=== PATIENT | female | born 1985 | race Caucasian/White ===

== ENCOUNTER 2017-01-12 11:13 | Emergency (ER) | payer OTHER ==
[~2017-01-12 11:13] MED LIST: KEFLEX750 MG PO; NORCO1 TA1 PO; VISTARIL25 MG PO
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
--- NOTE | 2017-01-12 15:01 | ED CLINICAL REPORT ---
Clinical Report - Physicians/Mid Levels [facility] [address] [place] [address] 01/12/2017 11:15 Patient: CHIQUI LOVE Time Seen: 11:36. Arrived- By private vehicle. Historian- patient. HISTORY OF PRESENT ILLNESS Chief Complaint: ALLERGIC REACTION. The patient has had a severe, itchy skin rash consisting of "hives" with generalized distribution. She has had itching and swelling but not had trouble swallowing. No difficulty breathing. This started several days ago and is still present. It was abrupt in onset and has been constant. A possible cause has been identified (she is concerned that it is due to copper from her recently placed Paragard IUD.). (She has noticed a rash on her neck and on her wrist where she has worn jewelry recently). REVIEW OF SYSTEMS No chills, fever, sweats, calf pain or chest pain. No cough, difficulty breathing, pedal edema, palpitations or abdominal pain. No constipation, diarrhea, nausea, vomiting or urinary problems. All systems otherwise negative, except as recorded above. PAST HISTORY PCP - Ploudre. SOCIAL HISTORY Never smoker. Occasional alcohol use. History of occasional drug use: marijuana. FAMILY HISTORY she reports that her identical twin sister has had allergic reactions to copper jewelry. ADDITIONAL NOTES The nursing notes have been reviewed. PHYSICAL EXAM Vital Signs: 01/12/2017 11:19 BP: 125/64. HR: 92. RR: 16. O2 saturation: 100%. Temp: 98 F. Pain level now: 8/10. Have been reviewed. Appearance: Alert. Head: No facial angioedema. ENT: Pharynx normal. No pharyngeal erythema. Neck: Neck supple. No lymphadenopathy. CVS: Normal heart rate and rhythm. Heart sounds normal. Respiratory: No respiratory distress. Breath sounds normal. Abdomen: Nontender. No organomegaly. : Normal external exam. Speculum exam normal. IUD string visible. No cervical lesions. Cervical os closed. (no bimanual exam was performed a female lining repairer was present). Skin: Skin warm and dry. Extremities: No calf tenderness. No edema of extremities. Skin: Severe generalized urticaria. LABS, X-RAYS, AND EKG Laboratory Tests: UA-Culture if indicated: (SENAIT: 01/12/2017 11:30) ( [facility] 01/12/2017 11:54) Final results Test Result Flag Units (Reference) URINE COLOR YELLOW URINE APPEARANCE CLEAR URINE GLUCOSE NEGATIVE (NEGATIVE) URINE BILIRUBIN NEGATIVE (NEGATIVE) URINE KETONE NEGATIVE (NEGATIVE) URINE SPECIFIC GRAVITY <= 1.005 L (1.010-1.030) URINE PH 5.5 (5.0-8.0) URINE PROTEIN NEGATIVE (NEGATIVE) URINE UROBILINOGEN 0.2 EU/dL (0.2-1.0) URINE NITRITE NEGATIVE (NEGATIVE) URINE BLOOD NEGATIVE (NEGATIVE) URINE LEUK ESTERASE NEGATIVE (NEGATIVE) URINE RBC NONE SEEN rbc/hpf (0-1) URINE WBC 0-1 wbc/hpf (0-1) URINE EPITHELIAL CELLS 0-1 EPI/hpf (0-5) URINE BACTERIA NONE SEEN (NONE SEEN) URINE COMMENT CULT NOT INDICATED URINE CULTURES ARE SET-UP BASED ON THE FOLLOWING CRITERIA:POSITIVE NITRITEPOSITIVE LEUKOCYTE ESTERASEGREATER THAN 10 WHITE BLOOD CELLSMODERATE (2+) OR GREATER BACTERIA Urine: (SENAIT: 01/12/2017 11:30) ( [facility] [place] 01/12/[place] 11:44) Final results Test Result Flag Units (Reference) URINE NEGATIVE CBC w Diff: (SENAIT: 01/12/2017 11:30) ( [facility] [place] 01/12/2017 11:42) Final results Test Result Flag Units (Reference) WHITE BLOOD COUNT 8.6 K/uL (4.5-11.5) RED BLOOD COUNT 4.74 M/uL (4.00-5.20) HEMOGLOBIN 14.1 gm/dL (12.0-16.0) HEMATOCRIT 42.2 % (36.0-46.0) MEAN CELL VOLUME 89 fL (80-100) MEAN CORPUSCULAR HGB 30 pg (26-34) MEAN CORPUSCULAR HGB CONC 33 g/dL (31-37) RED CELL DISTRIBUTION WIDTH 12.6 % (11.6-14.8) PLATELET COUNT 186 K/uL (150-400) NEUTROPHIL % 83.7 H % (50-75) LYMPH % 9.9 L % (25-40) MONO % 4.5 % (3-14) EOSINOPHIL % 1.6 % (0-4) BASOPHIL % 0.3 % (0-2) CMP: (SENAIT: 01/12/2017 11:30) ( [facility] 01/12/2017 12:01) Final results Test Result Flag Units (Reference) GLUCOSE 104 mg/dL (70-110) BUN 9 mg/dL (7-18) CREATININE 0.8 mg/dL (0.6-1.3) Estimated GFR >60 mL/min Estimated GFR- >60 mL/min Note: Persistent reduction over 3 months in eGFR<60 mL/min/1.73 m2 defines CKD. Patients with eGFR values>=60 mL/min/1.73 m2 may also have CKD if evidence ofpersistent proteinuria. Additional information may be foundat www.kidney.org. SODIUM 138 mmol/L (136-145) POTASSIUM 3.9 mmol/L (3.5-5.1) CHLORIDE 100 mmol/L (98-107) CARBON DIOXIDE 26 mmol/L (21-32) CALCIUM 9.2 mg/dL (8.5-10.1) TOTAL PROTEIN 7.8 g/dL (6.4-8.2) ALBUMIN 4.0 g/dL (3.3-5.0) BILIRUBIN, TOTAL 1.2 H mg/dL (0.0-1.0) ALKALINE PHOSPHATASE 100 U/L (46-116) AST (SGOT) 49 H U/L (15-37) ALT (SGPT) 70 U/L (12-78) . PROGRESS AND PROCEDURES Course of Care: the patient continues to express concern that her allergic reaction may be due to her recent placement of a ParaGard copper IUD. I explained to her at length that there is little evidence of this phenomenon but that copper could not be absolutely excluded as an allergen source. She insists that she would like her IUD removed. We discussed the risks of this and it was explained to her that if we do remove it she will need to use another form of contraception if she chooses to be sexually active. We also discussed the risk for potential injury to her uterus or cervix on removal of the IUD. after this discussion the patient provided verbal consent for the IUD to be removed. A female lining repairer accompanied me during removal. Patient was placed in dorsal lithotomy position and her cervix was visualized with the use of a speculum. The IUD string was noted exiting the cervical os. I gently grasped this with the use of a Francesca forceps and removed the IUD with gentle traction. She tolerated the removal well and there were no apparent complications. Patient/family counseled. Old medical records ordered. Disposition: Discharged. Condition: stable. CLINICAL IMPRESSION Acute urticaria secondary to allergy. INSTRUCTIONS No driving or operating machinery while taking medication. (Discussed with your doctor whether you would benefit from allergy testing as discussed). Warnings: Further evaluation is necessary. GENERAL WARNINGS: Return or contact your physician immediately if your condition worsens or changes unexpectedly, if not improving as expected, or if other problems arise. Your Current Medications: STOP TAKING THE FOLLOWING MEDICATIONS: Copper Intrauterine. CONTINUE TAKING THE FOLLOWING MEDICATIONS: Vitamins Oral. Prescription Medications: EpiPen: inject lateral thigh for allergic reaction. Dispense two (2) units. No refill. Substitution is permissible. Prednisone 20 mg: take 3 orally every day for 5 days. Dispense fifteen (15). No refills. Famotidine 20 mg: take 1 orally every 12 hours. Dispense ten (10). No refills. OTC Medications: Benadryl (available over the counter): take according to label instructions. Follow-up: Follow up with your doctor Ploudre in three days. Call for the next available appointment. Follow up with an grocery worker- as recommended by your primary care physician. Understanding of the discharge instructions verbalized by patient. (Electronically signed by Chau Flores MD 01/12/2017 15:47)
--- NOTE | 2017-01-12 15:01 | ED ORDER SUMMARY ---
..... Patient: CHIQUI LOVE OrderSheet [facility] VisitID: [id number] [address] [place] [address] 31y, F Registration Date/Time: 01/12/2017 ORDER SHEET Weight: 68.0 kg (stated) Allergies: None GENERAL ORDERS: Pulse oximeter (:01/12/2017 KKnebel R.N. per protocol) (12:15 SRoberts R.N.) Vitals (:01/12/2017 KKnebel R.N. per protocol) (12:15 SRoberts R.N.) CBC w Diff Urgent (:01/12/2017 KKnebel R.N. per protocol) (Ack 11:38 KHoerner) (12:06 SRoberts R.N.) CMP Urgent (:01/12/2017 KKnebel R.N. per protocol) (Ack 11:38 KHoerner) (12:06 SRoberts R.N.) Urine Urgent (11:01/12/2017 KKnebel R.N. per protocol) (Ack 11:38 KHoerner) (12:36 KKnebel R.N.) UA-Culture if indicated Urgent (:01/12/2017 KKnebel R.N. per protocol) (Ack 11:38 KHoerner) (12:36 KKnebel R.N.) Pelvic Exam Setup (12:45 01/12/2017 Abran FRANKS) (13:13 KKnebel R.N.) MEDICATION ORDERS: IV FLUIDS: IV Saline Lock (11:01/12/2017 KKnebel R.N. per protocol) (12:05 SRoberts R.N.) Solu-MEDROL IV 125 mg (NOW) (12:45 01/12/2017 Abran FRANKS) (12:47 KKnebel R.N.) Famotidine IV 40 mg/50mL (NOW) (13:15 01/12/2017 Abran FRANKS) (13:30 KKnebel R.N.) ORDER SHEET NOTES: [Electronically signed by Chau Flores MD (15:47 01/12/2017)] [Electronically signed by Kristine Knapp R.N. (23:13 01/12/2017)] [Electronically locked/signed by Kristine Knapp R.N. (23:13 01/12/2017)]
--- NOTE | 2017-01-12 15:01 | ED ORDER SUMMARY ---
..... Patient: CHIQUI LOVE OrderSheet [facility] VisitID: [id number] [address] [place] [address] 31y, F Registration Date/Time: 01/12/2017 ORDER SHEET Weight: 68.0 kg (stated) Allergies: None GENERAL ORDERS: Pulse oximeter (:01/12/2017 KKnebel R.N. per protocol) (12:15 SRoberts R.N.) Vitals (:01/12/2017 KKnebel R.N. per protocol) (12:15 SRoberts R.N.) CBC w Diff Urgent (:01/12/2017 KKnebel R.N. per protocol) (Ack 11:38 KHoerner) (12:06 SRoberts R.N.) CMP Urgent (:01/12/2017 KKnebel R.N. per protocol) (Ack 11:38 KHoerner) (12:06 SRoberts R.N.) Urine Urgent (11:01/12/2017 KKnebel R.N. per protocol) (Ack 11:38 KHoerner) (12:36 KKnebel R.N.) UA-Culture if indicated Urgent (:01/12/2017 KKnebel R.N. per protocol) (Ack 11:38 KHoerner) (12:36 KKnebel R.N.) Pelvic Exam Setup (12:45 01/12/2017 Abran FRANKS) (13:13 KKnebel R.N.) MEDICATION ORDERS: IV FLUIDS: IV Saline Lock (11:01/12/2017 KKnebel R.N. per protocol) (12:05 SRoberts R.N.) Solu-MEDROL IV 125 mg (NOW) (12:45 01/12/2017 Abran FRANKS) (12:47 KKnebel R.N.) Famotidine IV 40 mg/50mL (NOW) (13:15 01/12/2017 Abran FRANKS) (13:30 KKnebel R.N.) ORDER SHEET NOTES: [Electronically signed by Chau Flores MD (15:47 01/12/2017)] [Electronically signed by Kristine Knapp R.N. (23:13 01/12/2017)] [Electronically locked/signed by Kristine Knapp R.N. (23:13 01/12/2017)]
--- NOTE | 2017-01-12 15:01 | ED CLINICAL REPORT ---
Clinical Report - Physicians/Mid Levels [facility] [address] [place] [address] 01/12/2017 11:15 Patient: CHIQUI LOVE Time Seen: 11:36. Arrived- By private vehicle. Historian- patient. HISTORY OF PRESENT ILLNESS Chief Complaint: ALLERGIC REACTION. The patient has had a severe, itchy skin rash consisting of "hives" with generalized distribution. She has had itching and swelling but not had trouble swallowing. No difficulty breathing. This started several days ago and is still present. It was abrupt in onset and has been constant. A possible cause has been identified (she is concerned that it is due to copper from her recently placed Paragard IUD.). (She has noticed a rash on her neck and on her wrist where she has worn jewelry recently). REVIEW OF SYSTEMS No chills, fever, sweats, calf pain or chest pain. No cough, difficulty breathing, pedal edema, palpitations or abdominal pain. No constipation, diarrhea, nausea, vomiting or urinary problems. All systems otherwise negative, except as recorded above. PAST HISTORY PCP - Ploudre. SOCIAL HISTORY Never smoker. Occasional alcohol use. History of occasional drug use: marijuana. FAMILY HISTORY she reports that her identical twin sister has had allergic reactions to copper jewelry. ADDITIONAL NOTES The nursing notes have been reviewed. PHYSICAL EXAM Vital Signs: 01/12/2017 11:19 BP: 125/64. HR: 92. RR: 16. O2 saturation: 100%. Temp: 98 F. Pain level now: 8/10. Have been reviewed. Appearance: Alert. Head: No facial angioedema. ENT: Pharynx normal. No pharyngeal erythema. Neck: Neck supple. No lymphadenopathy. CVS: Normal heart rate and rhythm. Heart sounds normal. Respiratory: No respiratory distress. Breath sounds normal. Abdomen: Nontender. No organomegaly. : Normal external exam. Speculum exam normal. IUD string visible. No cervical lesions. Cervical os closed. (no bimanual exam was performed a female manager produce was present). Skin: Skin warm and dry. Extremities: No calf tenderness. No edema of extremities. Skin: Severe generalized urticaria. LABS, X-RAYS, AND EKG Laboratory Tests: UA-Culture if indicated: (SENAIT: 01/12/2017 11:30) ( [facility] [place]/12/[place] 11:54) Final results Test Result Flag Units (Reference) URINE COLOR YELLOW URINE APPEARANCE CLEAR URINE GLUCOSE NEGATIVE (NEGATIVE) URINE BILIRUBIN NEGATIVE (NEGATIVE) URINE KETONE NEGATIVE (NEGATIVE) URINE SPECIFIC GRAVITY <= 1.005 L (1.010-1.030) URINE PH 5.5 (5.0-8.0) URINE PROTEIN NEGATIVE (NEGATIVE) URINE UROBILINOGEN 0.2 EU/dL (0.2-1.0) URINE NITRITE NEGATIVE (NEGATIVE) URINE BLOOD NEGATIVE (NEGATIVE) URINE LEUK ESTERASE NEGATIVE (NEGATIVE) URINE RBC NONE SEEN rbc/hpf (0-1) URINE WBC 0-1 wbc/hpf (0-1) URINE EPITHELIAL CELLS 0-1 EPI/hpf (0-5) URINE BACTERIA NONE SEEN (NONE SEEN) URINE COMMENT CULT NOT INDICATED URINE CULTURES ARE SET-UP BASED ON THE FOLLOWING CRITERIA:POSITIVE NITRITEPOSITIVE LEUKOCYTE ESTERASEGREATER THAN 10 WHITE BLOOD CELLSMODERATE (2+) OR GREATER BACTERIA Urine: (SENAIT: 01/12/2017 11:30) ( [facility] [place] 01/12/2017 11:44) Final results Test Result Flag Units (Reference) URINE NEGATIVE CBC w Diff: (SENAIT: 01/12/2017 11:30) ( [facility] 01/12/2017 11:42) Final results Test Result Flag Units (Reference) WHITE BLOOD COUNT 8.6 K/uL (4.5-11.5) RED BLOOD COUNT 4.74 M/uL (4.00-5.20) HEMOGLOBIN 14.1 gm/dL (12.0-16.0) HEMATOCRIT 42.2 % (36.0-46.0) MEAN CELL VOLUME 89 fL (80-100) MEAN CORPUSCULAR HGB 30 pg (26-34) MEAN CORPUSCULAR HGB CONC 33 g/dL (31-37) RED CELL DISTRIBUTION WIDTH 12.6 % (11.6-14.8) PLATELET COUNT 186 K/uL (150-400) NEUTROPHIL % 83.7 H % (50-75) LYMPH % 9.9 L % (25-40) MONO % 4.5 % (3-14) EOSINOPHIL % 1.6 % (0-4) BASOPHIL % 0.3 % (0-2) CMP: (SENAIT: 01/12/2017 11:30) ( [facility] 01/12/2017 12:01) Final results Test Result Flag Units (Reference) GLUCOSE 104 mg/dL (70-110) BUN 9 mg/dL (7-18) CREATININE 0.8 mg/dL (0.6-1.3) Estimated GFR >60 mL/min Estimated GFR- >60 mL/min Note: Persistent reduction over 3 months in eGFR<60 mL/min/1.73 m2 defines CKD. Patients with eGFR values>=60 mL/min/1.73 m2 may also have CKD if evidence ofpersistent proteinuria. Additional information may be foundat [email or web address].org. SODIUM 138 mmol/L (136-145) POTASSIUM 3.9 mmol/L (3.5-5.1) CHLORIDE 100 mmol/L (98-107) CARBON DIOXIDE 26 mmol/L (21-32) CALCIUM 9.2 mg/dL (8.5-10.1) TOTAL PROTEIN 7.8 g/dL (6.4-8.2) ALBUMIN 4.0 g/dL (3.3-5.0) BILIRUBIN, TOTAL 1.2 H mg/dL (0.0-1.0) ALKALINE PHOSPHATASE 100 U/L (46-116) AST (SGOT) 49 H U/L (15-37) ALT (SGPT) 70 U/L (12-78) . PROGRESS AND PROCEDURES Course of Care: the patient continues to express concern that her allergic reaction may be due to her recent placement of a ParaGard copper IUD. I explained to her at length that there is little evidence of this phenomenon but that copper could not be absolutely excluded as an allergen source. She insists that she would like her IUD removed. We discussed the risks of this and it was explained to her that if we do remove it she will need to use another form of contraception if she chooses to be sexually active. We also discussed the risk for potential injury to her uterus or cervix on removal of the IUD. after this discussion the patient provided verbal consent for the IUD to be removed. A female manager produce accompanied me during removal. Patient was placed in dorsal lithotomy position and her cervix was visualized with the use of a speculum. The IUD string was noted exiting the cervical os. I gently grasped this with the use of a Francesca forceps and removed the IUD with gentle traction. She tolerated the removal well and there were no apparent complications. Patient/family counseled. Old medical records ordered. Disposition: Discharged. Condition: stable. CLINICAL IMPRESSION Acute urticaria secondary to allergy. INSTRUCTIONS No driving or operating machinery while taking medication. (Discussed with your doctor whether you would benefit from allergy testing as discussed). Warnings: Further evaluation is necessary. GENERAL WARNINGS: Return or contact your physician immediately if your condition worsens or changes unexpectedly, if not improving as expected, or if other problems arise. Your Current Medications: STOP TAKING THE FOLLOWING MEDICATIONS: Copper Intrauterine. CONTINUE TAKING THE FOLLOWING MEDICATIONS: Vitamins Oral. Prescription Medications: EpiPen: inject lateral thigh for allergic reaction. Dispense two (2) units. No refill. Substitution is permissible. Prednisone 20 mg: take 3 orally every day for 5 days. Dispense fifteen (15). No refills. Famotidine 20 mg: take 1 orally every 12 hours. Dispense ten (10). No refills. OTC Medications: Benadryl (available over the counter): take according to label instructions. Follow-up: Follow up with your doctor Ploudre in three days. Call for the next available appointment. Follow up with an line erector- as recommended by your primary care physician. Understanding of the discharge instructions verbalized by patient. (Electronically signed by Chau Flores MD 01/12/2017 15:47)
--- NOTE | 2017-01-12 23:13 | ED MED RECONCILIATION SUMMARY ---
Patient: CHIQUI LOVE Medication Reconciliation Report [facility] VisitID: [id number] [address] [place] [address] 31y, F Registration Date/Time: 01/12/2017 Weight: 68.0 kg Height/Length: 69 in. BMI: 22.2 ALLERGIES: None The patient's Home Medications are listed below: STOP TAKING THE FOLLOWING MEDICATIONS: Copper Intrauterine CONTINUE TAKING THE FOLLOWING MEDICATIONS: Vitamins Oral The source(s) of the original Home Medication information: Not obtained. The following Medications were given to the patient in the Emergency Department: SOLU-MEDROL [IVP] IVP 125 mg, administered: 01/12/2017 12:47:00 PM Famotidine [IVPB] IVPB bolus 0, then 20 mg 100 mL/hr, administered: 01/12/2017 1:30:00 PM Famotidine [IVPB] IVPB bolus 0, then 20 mg 100 mL/hr, administered: 01/12/2017 2:00:00 PM The following Medications were prescribed to the patient: EpiPen: inject lateral thigh for allergic reaction. Dispense two (2) units. No refill. Substitution is permissible. -- Chau Flroes MD Prednisone 20 mg: take 3 orally every day for 5 days. Dispense fifteen (15). No refills. -- Chau Flores MD Benadryl (available over the counter): take according to label instructions. -- Chau Flores MD Famotidine 20 mg: take 1 orally every 12 hours. Dispense ten (10). No refills. -- Chau Flores MD
--- NOTE | 2017-01-12 23:13 | ED MAR SUMMARY ---
..... Medication Administration Record [facility] [address] [place] [address] Patient: CHIQUI LOVE Visit ID: [id number] 31y, F Weight: 68.0 kg Height/Length: 69 in BMI: 22.2 ALLERGIES: None Given 12:47 01/12/2017 Kristine Knapp R.N. Medication Administered: SOLU-MEDROL [IVP] (METHYLPREDNISOLONE SODIUM SUCC), Dose: 125 mg IVP over 2 minute(s), Site: #1 left AC. Medication Ordered: Solu-MEDROL IV 125 mg (NOW). Start 13:30 01/12/2017 Kristine Knapp R.N. Medication Administered: FAMOTIDINE [IVPB], Dose: 20 mg IVPB over 30 minute(s), Rate: 100 mL/hr, Dispensed: 50 mL bag, Site: #1 left AC. Medication Ordered: Famotidine IV 40 mg/50mL (NOW). Start 14:00 01/12/2017 Kristine Knapp R.N. Medication Administered: FAMOTIDINE [IVPB], Dose: 20 mg IVPB over 30 minute(s), Rate: 100 mL/hr, Dispensed: 50 mL bag, Site: #1 left AC. Medication Ordered: Famotidine IV 40 mg/50mL (NOW).
--- NOTE | 2017-01-12 23:13 | ED MAR SUMMARY ---
..... Medication Administration Record [facility] [address] [place] [address] Patient: CHIQUI LOVE Visit ID: [id number] 31y, F Weight: 68.0 kg Height/Length: 69 in BMI: 22.2 ALLERGIES: None Given 12:47 01/12/2017 Kristine Knapp R.N. Medication Administered: SOLU-MEDROL [IVP] (METHYLPREDNISOLONE SODIUM SUCC), Dose: 125 mg IVP over 2 minute(s), Site: #1 left AC. Medication Ordered: Solu-MEDROL IV 125 mg (NOW). Start 13:30 01/12/2017 Kristine Knapp R.N. Medication Administered: FAMOTIDINE [IVPB], Dose: 20 mg IVPB over 30 minute(s), Rate: 100 mL/hr, Dispensed: 50 mL bag, Site: #1 left AC. Medication Ordered: Famotidine IV 40 mg/50mL (NOW). Start 14:00 01/12/2017 Kristine Knapp R.N. Medication Administered: FAMOTIDINE [IVPB], Dose: 20 mg IVPB over 30 minute(s), Rate: 100 mL/hr, Dispensed: 50 mL bag, Site: #1 left AC. Medication Ordered: Famotidine IV 40 mg/50mL (NOW).
--- NOTE | 2017-01-12 23:13 | ED DISCHARGE INSTRUCTIONS ---
Patient: CHIQUI LOVE General Instructions [facility] VisitID: [id number] [place] [address] 31y, F Registration Date/Time: 01/12/2017 Acute urticaria secondary to allergy. INSTRUCTIONS No driving or operating machinery while taking medication. (Discussed with your doctor whether you would benefit from allergy testing as discussed). Warnings: Further evaluation is necessary. GENERAL WARNINGS: Return or contact your physician immediately if your condition worsens or changes unexpectedly, if not improving as expected, or if other problems arise. Your Current Medications: STOP TAKING THE FOLLOWING MEDICATIONS: Copper Intrauterine. CONTINUE TAKING THE FOLLOWING MEDICATIONS: Vitamins Oral. Prescription Medications: EpiPen: inject lateral thigh for allergic reaction. Dispense two (2) units. No refill. Substitution is permissible. Prednisone 20 mg: take 3 orally every day for 5 days. Dispense fifteen (15). No refills. Famotidine 20 mg: take 1 orally every 12 hours. Dispense ten (10). No refills. OTC Medications: Benadryl (available over the counter): take according to label instructions. Follow-up: Follow up with your doctor [place] in three days. Call for the next available appointment. Follow up with an adapted physical education specialist- as recommended by your primary care physician. Understanding of the discharge instructions verbalized by patient. ADDITIONAL INFORMATION Hives Hives is an itchy red rash that can appear suddenly and move about your body. It goes away in one place and comes back in another. This is usually caused by something that you are allergic to such as: EATING: fruit, shellfish, chocolate, nuts, tomatoes or medicine BREATHING: pollens, animal hair/fur or mold spores Exposure to cold air, sun rays or exercise can sometimes cause an attack. Many times we cannot find a cause. Medicines can be used to reduce itching and swelling. The rash will usually fade over several days, but can sometimes last up to two weeks. Home Care: 1) Do not wear tight clothing and do not take hot baths/showers since heat can make the itching worse. 2) An ice pack (ice cubes in a plastic bag, wrapped in a towel) will reduce local areas of redness and itching. Lanacaine cream or Solarcaine spray (or other product containing "benzocaine") will reduce itching. 3) Oral Benadryl (diphenhydramine) is an antihistamine available at drug and grocery stores. Unless a prescription antihistamine was given, Benadryl may be used to reduce itching if large areas of the skin are involved. Use lower doses during the daytime and higher doses at bedtime since the drug may make you sleepy. [NOTE: Do not use Benadryl if you have glaucoma or if you are a man with trouble urinating due to an enlarged prostate.] Claritin (loratadine) is an antihistamine that causes less drowsiness and is a good alternative for daytime use. 4) If you know what you are sensitive to, avoid this substance. Future reactions could be worse than this one. Follow Up with your doctor as directed by our staff, if symptoms do not begin to improve in two days. If you have had a severe reaction, or have had several episodes of hives, then ask your doctor about allergy testing to find out what you are allergic to. Get Prompt Medical Attention if any of the following occur: -- Trouble breathing or swallowing -- New or increased swelling in the face, lips, tongue or throat -- Dizziness, weakness or fainting Prednisone Oral tablet What is this medicine? PREDNISONE (PRED ni sone) is a corticosteroid. It is commonly used to treat inflammation of the skin, joints, lungs, and other organs. Common conditions treated include asthma, allergies, and arthritis. It is also used for other conditions, such as blood disorders and diseases of the adrenal glands. How should I use this medicine? Take this medicine by mouth with a glass of water. Follow the directions on the prescription label. Take this medicine with food. If you are taking this medicine once a day, take it in the morning. Do not take more medicine than you are told to take. Do not suddenly stop taking your medicine because you may develop a severe reaction. Your doctor will tell you how much medicine to take. If your doctor wants you to stop the medicine, the dose may be slowly lowered over time to avoid any side effects. Talk to your supervisor dock regarding the use of this medicine in children. Special care may be needed. What side effects may I notice from receiving this medicine? Side effects that you should report to your doctor or health vocational childcare teacher as soon as possible: allergic reactions like skin rash, itching or hives, swelling of the face, lips, or tongue changes in emotions or moods changes in vision depressed mood eye pain fever or chills, cough, sore throat, pain or difficulty passing urine increased thirst swelling of ankles, feet Side effects that usually do not require medical attention (report to your doctor or health vocational childcare teacher if they continue or are bothersome): confusion, excitement, restlessness headache nausea, vomiting skin problems, acne, thin and shiny skin trouble sleeping weight gain What may interact with this medicine? Do not take this medicine with any of the following medications: metyrapone mifepristone This medicine may also interact with the following medications: aminoglutethimide amphotericin B aspirin and aspirin-like medicines barbiturates certain medicines for diabetes, like glipizide or glyburide cholestyramine cholinesterase inhibitors cyclosporine digoxin diuretics ephedrine female hormones, like estrogens and control pills isoniazid ketoconazole NSAIDS, medicines for pain and inflammation, like ibuprofen or naproxen phenytoin rifampin toxoids vaccines warfarin What if I miss a dose? If you miss a dose, take it as soon as you can. If it is almost time for your next dose, talk to your doctor or health vocational childcare teacher. You may need to miss a dose or take an extra dose. Do not take double or extra doses without advice. Where should I keep my medicine? Keep out of the reach of children. Store at room temperature between 15 and 30 degrees C (59 and 86 degrees F). Protect from light. Keep container tightly closed. Throw away any unused medicine after the expiration date. What should I tell my health care provider before I take this medicine? They need to know if you have any of these conditions: [place]'s syndrome diabetes glaucoma heart disease high blood pressure infection (especially a virus infection such as chickenpox, cold sores, or herpes) kidney disease liver disease mental illness myasthenia gravis osteoporosis seizures stomach or intestine problems thyroid disease an unusual or allergic reaction to lactose, prednisone, other medicines, foods, dyes, or preservatives or trying to get breast-feeding What should I watch for while using this medicine? Visit your doctor or health vocational childcare teacher for regular checks on your progress. If you are taking this medicine over a prolonged period, carry an identification card with your name and address, the type and dose of your medicine, and your doctor's name and address. This medicine may increase your risk of getting an infection. Tell your doctor or health vocational childcare teacher if you are around anyone with measles or chickenpox, or if you develop sores or blisters that do not heal properly. If you are going to have surgery, tell your doctor or health vocational childcare teacher that you have taken this medicine within the last twelve months. Ask your doctor or health vocational childcare teacher about your diet. You may need to lower the amount of salt you eat. This medicine may affect blood sugar levels. If you have diabetes, check with your doctor or health vocational childcare teacher before you change your diet or the dose of your diabetic medicine. Famotidine Oral tablet What is this medicine? FAMOTIDINE (chandra abreu) is a type of antihistamine that blocks the release of stomach acid. It is used to treat stomach or intestinal ulcers. It can also relieve heartburn from acid reflux. How should I use this medicine? Take this medicine by mouth with a glass of water. Follow the directions on the prescription label. If you only take this medicine once a day, take it at bedtime. Take your doses at regular intervals. Do not take your medicine more often than directed. Talk to your supervisor dock regarding the use of this medicine in children. Special care may be needed. What side effects may I notice from receiving this medicine? Side effects that you should report to your doctor or health vocational childcare teacher as soon as possible: agitation, nervousness confusion hallucinations skin rash, itching Side effects that usually do not require medical attention (report to your doctor or health vocational childcare teacher if they continue or are bothersome): constipation diarrhea dizziness headache What may interact with this medicine? delavirdine itraconazole ketoconazole What if I miss a dose? If you miss a dose, take it as soon as you can. If it is almost time for your next dose, take only that dose. Do not take double or extra doses. Where should I keep my medicine? Keep out of the reach of children. Store at room temperature between 15 and 30 degrees C (59 and 86 degrees F). Do not freeze. Throw away any unused medicine after the expiration date. What should I tell my health care provider before I take this medicine? They need to know if you have any of these conditions: kidney or liver disease trouble swallowing an unusual or allergic reaction to famotidine, other medicines, foods, dyes, or preservatives or trying to get breast-feeding What should I watch for while using this medicine? Tell your doctor or health vocational childcare teacher if your condition does not start to get better or if it gets worse. Finish the full course of tablets prescribed, even if you feel better. Do not take with aspirin, ibuprofen or other antiinflammatory medicines. These can make your condition worse. Do not smoke cigarettes or drink alcohol. These cause irritation in your stomach and can increase the time it will take for ulcers to heal. If you get black, tarry stools or vomit up what looks like coffee grounds, call your doctor or health vocational childcare teacher at once. You may have a bleeding ulcer. Diphenhydramine Tannate Chewable tablet What is this medicine? DIPHENHYDRAMINE (dye fen JOHNATHON phippsa sean) is an antihistamine. It is used to treat the symptoms of an allergic reaction. How should I use this medicine? Take this medicine by mouth. Chew it completely before swallowing. Follow the directions on the prescription label. Take your doses at regular intervals. Do not take your medicine more often than directed. Talk to your supervisor dock regarding the use of this medicine in children. While this drug may be prescribed for children as young as 6 years old for selected conditions, precautions do apply. Patients over 65 years old may have a stronger reaction and need a smaller dose. What side effects may I notice from receiving this medicine? Side effects that you should report to your doctor or health vocational childcare teacher as soon as possible: allergic reactions like skin rash, itching or hives, swelling of the face, lips, or tongue changes in vision confused, agitated, nervous irregular or fast heartbeat tremor trouble passing urine unusual bleeding or bruising unusually weak or tired Side effects that usually do not require medical attention (report to your doctor or health vocational childcare teacher if they continue or are bothersome): constipation, diarrhea drowsy headache loss of appetite stomach upset, vomiting thick mucous What may interact with this medicine? Do not take this medicine with any of the following medications: MAOIs like Carbex, Eldepryl, Marplan, Nardil, and Parnate This medicine may also interact with the following medications: alcohol barbiturates, like phenobarbital medicines for bladder spasm like oxybutynin, tolterodine medicines for blood pressure medicines for depression, anxiety, or psychotic disturbances medicines for movement abnormalities or Parkinson's disease medicines for sleep other medicines for cold, cough or allergy some medicines for the stomach like chlordiazepoxide, dicyclomine What if I miss a dose? If you miss a dose, take it as soon as you can. If it is almost time for your next dose, take only that dose. Do not take double or extra doses. Where should I keep my medicine? Keep out of the reach of children. Store at room temperature between 15 and 30 degrees C (59 and 86 degrees F). Keep container closed tightly. Throw away any unused medicine after the expiration date. What should I tell my health care provider before I take this medicine? They need to know if you have any of these conditions: glaucoma high blood pressure heart disease liver disease lung or breathing disease, like asthma pain or difficulty passing urine phenylketonuria prostate trouble ulcers or other stomach problems an unusual or allergic reaction to diphenhydramine, sulfites, other medicines foods, dyes, or preservatives or trying to get breast-feeding What should I watch for while using this medicine? Visit your doctor or health vocational childcare teacher for regular check ups. Tell your doctor or healthcare professional if your symptoms do not start to get better or if they get worse. Your mouth may get dry. Chewing sugarless gum or sucking hard candy, and drinking plenty of water may help. Contact your doctor if the problem does not go away or is severe. This medicine may cause dry eyes and blurred vision. If you wear contact lenses you may feel some discomfort. Lubricating drops may help. See your eye doctor if the problem does not go away or is severe. You may get drowsy or dizzy. Do not drive, use machinery, or do anything that needs mental alertness until you know how this medicine affects you. Do not stand or sit up quickly, especially if you are an older patient. This reduces the risk of dizzy or fainting spells. Alcohol may interfere with the effect of this medicine. Avoid alcoholic drinks. You have been given the following additional information: Hives Prednisone Oral tablet Famotidine Oral tablet Diphenhydramine Tannate Chewable tablet No driving or operating machinery while taking medication. (Electronically signed by Chau Flores MD 01/12/2017 15:47)
--- NOTE | 2017-01-12 23:13 | ED DISCHARGE INSTRUCTIONS ---
Patient: CHIQUI LOVE General Instructions [facility] VisitID: [id number] [place] [address] 31y, F Registration Date/Time: 01/12/2017 Acute urticaria secondary to allergy. INSTRUCTIONS No driving or operating machinery while taking medication. (Discussed with your doctor whether you would benefit from allergy testing as discussed). Warnings: Further evaluation is necessary. GENERAL WARNINGS: Return or contact your physician immediately if your condition worsens or changes unexpectedly, if not improving as expected, or if other problems arise. Your Current Medications: STOP TAKING THE FOLLOWING MEDICATIONS: Copper Intrauterine. CONTINUE TAKING THE FOLLOWING MEDICATIONS: Vitamins Oral. Prescription Medications: EpiPen: inject lateral thigh for allergic reaction. Dispense two (2) units. No refill. Substitution is permissible. Prednisone 20 mg: take 3 orally every day for 5 days. Dispense fifteen (15). No refills. Famotidine 20 mg: take 1 orally every 12 hours. Dispense ten (10). No refills. OTC Medications: Benadryl (available over the counter): take according to label instructions. Follow-up: Follow up with your doctor [place] in three days. Call for the next available appointment. Follow up with an chemist helper- as recommended by your primary care physician. Understanding of the discharge instructions verbalized by patient. ADDITIONAL INFORMATION Hives Hives is an itchy red rash that can appear suddenly and move about your body. It goes away in one place and comes back in another. This is usually caused by something that you are allergic to such as: EATING: fruit, shellfish, chocolate, nuts, tomatoes or medicine BREATHING: pollens, animal hair/fur or mold spores Exposure to cold air, sun rays or exercise can sometimes cause an attack. Many times we cannot find a cause. Medicines can be used to reduce itching and swelling. The rash will usually fade over several days, but can sometimes last up to two weeks. Home Care: 1) Do not wear tight clothing and do not take hot baths/showers since heat can make the itching worse. 2) An ice pack (ice cubes in a plastic bag, wrapped in a towel) will reduce local areas of redness and itching. Lanacaine cream or Solarcaine spray (or other product containing "benzocaine") will reduce itching. 3) Oral Benadryl (diphenhydramine) is an antihistamine available at drug and grocery stores. Unless a prescription antihistamine was given, Benadryl may be used to reduce itching if large areas of the skin are involved. Use lower doses during the daytime and higher doses at bedtime since the drug may make you sleepy. [NOTE: Do not use Benadryl if you have glaucoma or if you are a man with trouble urinating due to an enlarged prostate.] Claritin (loratadine) is an antihistamine that causes less drowsiness and is a good alternative for daytime use. 4) If you know what you are sensitive to, avoid this substance. Future reactions could be worse than this one. Follow Up with your doctor as directed by our staff, if symptoms do not begin to improve in two days. If you have had a severe reaction, or have had several episodes of hives, then ask your doctor about allergy testing to find out what you are allergic to. Get Prompt Medical Attention if any of the following occur: -- Trouble breathing or swallowing -- New or increased swelling in the face, lips, tongue or throat -- Dizziness, weakness or fainting Prednisone Oral tablet What is this medicine? PREDNISONE (PRED ni sone) is a corticosteroid. It is commonly used to treat inflammation of the skin, joints, lungs, and other organs. Common conditions treated include asthma, allergies, and arthritis. It is also used for other conditions, such as blood disorders and diseases of the adrenal glands. How should I use this medicine? Take this medicine by mouth with a glass of water. Follow the directions on the prescription label. Take this medicine with food. If you are taking this medicine once a day, take it in the morning. Do not take more medicine than you are told to take. Do not suddenly stop taking your medicine because you may develop a severe reaction. Your doctor will tell you how much medicine to take. If your doctor wants you to stop the medicine, the dose may be slowly lowered over time to avoid any side effects. Talk to your parts designer regarding the use of this medicine in children. Special care may be needed. What side effects may I notice from receiving this medicine? Side effects that you should report to your doctor or health patient care associate as soon as possible: allergic reactions like skin rash, itching or hives, swelling of the face, lips, or tongue changes in emotions or moods changes in vision depressed mood eye pain fever or chills, cough, sore throat, pain or difficulty passing urine increased thirst swelling of ankles, feet Side effects that usually do not require medical attention (report to your doctor or health patient care associate if they continue or are bothersome): confusion, excitement, restlessness headache nausea, vomiting skin problems, acne, thin and shiny skin trouble sleeping weight gain What may interact with this medicine? Do not take this medicine with any of the following medications: metyrapone mifepristone This medicine may also interact with the following medications: aminoglutethimide amphotericin B aspirin and aspirin-like medicines barbiturates certain medicines for diabetes, like glipizide or glyburide cholestyramine cholinesterase inhibitors cyclosporine digoxin diuretics ephedrine female hormones, like estrogens and control pills isoniazid ketoconazole NSAIDS, medicines for pain and inflammation, like ibuprofen or naproxen phenytoin rifampin toxoids vaccines warfarin What if I miss a dose? If you miss a dose, take it as soon as you can. If it is almost time for your next dose, talk to your doctor or health patient care associate. You may need to miss a dose or take an extra dose. Do not take double or extra doses without advice. Where should I keep my medicine? Keep out of the reach of children. Store at room temperature between 15 and 30 degrees C (59 and 86 degrees F). Protect from light. Keep container tightly closed. Throw away any unused medicine after the expiration date. What should I tell my health care provider before I take this medicine? They need to know if you have any of these conditions: [place]'s syndrome diabetes glaucoma heart disease high blood pressure infection (especially a virus infection such as chickenpox, cold sores, or herpes) kidney disease liver disease mental illness myasthenia gravis osteoporosis seizures stomach or intestine problems thyroid disease an unusual or allergic reaction to lactose, prednisone, other medicines, foods, dyes, or preservatives or trying to get breast-feeding What should I watch for while using this medicine? Visit your doctor or health patient care associate for regular checks on your progress. If you are taking this medicine over a prolonged period, carry an identification card with your name and address, the type and dose of your medicine, and your doctor's name and address. This medicine may increase your risk of getting an infection. Tell your doctor or health patient care associate if you are around anyone with measles or chickenpox, or if you develop sores or blisters that do not heal properly. If you are going to have surgery, tell your doctor or health patient care associate that you have taken this medicine within the last twelve months. Ask your doctor or health patient care associate about your diet. You may need to lower the amount of salt you eat. This medicine may affect blood sugar levels. If you have diabetes, check with your doctor or health patient care associate before you change your diet or the dose of your diabetic medicine. Famotidine Oral tablet What is this medicine? FAMOTIDINE (chandra abreu) is a type of antihistamine that blocks the release of stomach acid. It is used to treat stomach or intestinal ulcers. It can also relieve heartburn from acid reflux. How should I use this medicine? Take this medicine by mouth with a glass of water. Follow the directions on the prescription label. If you only take this medicine once a day, take it at bedtime. Take your doses at regular intervals. Do not take your medicine more often than directed. Talk to your parts designer regarding the use of this medicine in children. Special care may be needed. What side effects may I notice from receiving this medicine? Side effects that you should report to your doctor or health patient care associate as soon as possible: agitation, nervousness confusion hallucinations skin rash, itching Side effects that usually do not require medical attention (report to your doctor or health patient care associate if they continue or are bothersome): constipation diarrhea dizziness headache What may interact with this medicine? delavirdine itraconazole ketoconazole What if I miss a dose? If you miss a dose, take it as soon as you can. If it is almost time for your next dose, take only that dose. Do not take double or extra doses. Where should I keep my medicine? Keep out of the reach of children. Store at room temperature between 15 and 30 degrees C (59 and 86 degrees F). Do not freeze. Throw away any unused medicine after the expiration date. What should I tell my health care provider before I take this medicine? They need to know if you have any of these conditions: kidney or liver disease trouble swallowing an unusual or allergic reaction to famotidine, other medicines, foods, dyes, or preservatives or trying to get breast-feeding What should I watch for while using this medicine? Tell your doctor or health patient care associate if your condition does not start to get better or if it gets worse. Finish the full course of tablets prescribed, even if you feel better. Do not take with aspirin, ibuprofen or other antiinflammatory medicines. These can make your condition worse. Do not smoke cigarettes or drink alcohol. These cause irritation in your stomach and can increase the time it will take for ulcers to heal. If you get black, tarry stools or vomit up what looks like coffee grounds, call your doctor or health patient care associate at once. You may have a bleeding ulcer. Diphenhydramine Tannate Chewable tablet What is this medicine? DIPHENHYDRAMINE (dye fen JOHNATHON phippsa sean) is an antihistamine. It is used to treat the symptoms of an allergic reaction. How should I use this medicine? Take this medicine by mouth. Chew it completely before swallowing. Follow the directions on the prescription label. Take your doses at regular intervals. Do not take your medicine more often than directed. Talk to your parts designer regarding the use of this medicine in children. While this drug may be prescribed for children as young as 6 years old for selected conditions, precautions do apply. Patients over 65 years old may have a stronger reaction and need a smaller dose. What side effects may I notice from receiving this medicine? Side effects that you should report to your doctor or health patient care associate as soon as possible: allergic reactions like skin rash, itching or hives, swelling of the face, lips, or tongue changes in vision confused, agitated, nervous irregular or fast heartbeat tremor trouble passing urine unusual bleeding or bruising unusually weak or tired Side effects that usually do not require medical attention (report to your doctor or health patient care associate if they continue or are bothersome): constipation, diarrhea drowsy headache loss of appetite stomach upset, vomiting thick mucous What may interact with this medicine? Do not take this medicine with any of the following medications: MAOIs like Carbex, Eldepryl, Marplan, Nardil, and Parnate This medicine may also interact with the following medications: alcohol barbiturates, like phenobarbital medicines for bladder spasm like oxybutynin, tolterodine medicines for blood pressure medicines for depression, anxiety, or psychotic disturbances medicines for movement abnormalities or Parkinson's disease medicines for sleep other medicines for cold, cough or allergy some medicines for the stomach like chlordiazepoxide, dicyclomine What if I miss a dose? If you miss a dose, take it as soon as you can. If it is almost time for your next dose, take only that dose. Do not take double or extra doses. Where should I keep my medicine? Keep out of the reach of children. Store at room temperature between 15 and 30 degrees C (59 and 86 degrees F). Keep container closed tightly. Throw away any unused medicine after the expiration date. What should I tell my health care provider before I take this medicine? They need to know if you have any of these conditions: glaucoma high blood pressure heart disease liver disease lung or breathing disease, like asthma pain or difficulty passing urine phenylketonuria prostate trouble ulcers or other stomach problems an unusual or allergic reaction to diphenhydramine, sulfites, other medicines foods, dyes, or preservatives or trying to get breast-feeding What should I watch for while using this medicine? Visit your doctor or health patient care associate for regular check ups. Tell your doctor or healthcare professional if your symptoms do not start to get better or if they get worse. Your mouth may get dry. Chewing sugarless gum or sucking hard candy, and drinking plenty of water may help. Contact your doctor if the problem does not go away or is severe. This medicine may cause dry eyes and blurred vision. If you wear contact lenses you may feel some discomfort. Lubricating drops may help. See your eye doctor if the problem does not go away or is severe. You may get drowsy or dizzy. Do not drive, use machinery, or do anything that needs mental alertness until you know how this medicine affects you. Do not stand or sit up quickly, especially if you are an older patient. This reduces the risk of dizzy or fainting spells. Alcohol may interfere with the effect of this medicine. Avoid alcoholic drinks. You have been given the following additional information: Hives Prednisone Oral tablet Famotidine Oral tablet Diphenhydramine Tannate Chewable tablet No driving or operating machinery while taking medication. (Electronically signed by Chau Flores MD 01/12/2017 15:47)
--- NOTE | 2017-01-12 23:13 | ED MED RECONCILIATION SUMMARY ---
Patient: CHIQUI LOVE Medication Reconciliation Report [facility] VisitID: [id number] [place] [address] 31y, F Registration Date/Time: 01/12/2017 Weight: 68.0 kg Height/Length: 69 in. BMI: 22.2 ALLERGIES: None The patient's Home Medications are listed below: STOP TAKING THE FOLLOWING MEDICATIONS: Copper Intrauterine CONTINUE TAKING THE FOLLOWING MEDICATIONS: Vitamins Oral The source(s) of the original Home Medication information: Not obtained. The following Medications were given to the patient in the Emergency Department: SOLU-MEDROL [IVP] IVP 125 mg, administered: 01/12/2017 12:47:00 PM Famotidine [IVPB] IVPB bolus 0, then 20 mg 100 mL/hr, administered: 01/12/2017 1:30:00 PM Famotidine [IVPB] IVPB bolus 0, then 20 mg 100 mL/hr, administered: 01/12/2017 2:00:00 PM The following Medications were prescribed to the patient: EpiPen: inject lateral thigh for allergic reaction. Dispense two (2) units. No refill. Substitution is permissible. -- Chau Flores MD Prednisone 20 mg: take 3 orally every day for 5 days. Dispense fifteen (15). No refills. -- Chau Flores MD Benadryl (available over the counter): take according to label instructions. -- Chau Flores MD Famotidine 20 mg: take 1 orally every 12 hours. Dispense ten (10). No refills. -- Chau Flores MD
== END 2017-01-12 15:03 | disposition home or self-care (01) ==
LOC: ED SRH 11:13
DX: L50.0 Allergic urticaria (principal); Z30.432 Encounter for removal of intrauterine contraceptive device; T78.49XA Other allergy, initial encounter; K21.9 Gastro-esophageal reflux disease without esophagitis
CPT/HCPCS: 90004; 90100; 93070; 95059